=== PATIENT | female | born 1965 | race Caucasian/White ===

== ENCOUNTER → 2016-12-23 | Outpatient (CLI) | payer BC ==
[~2016-12-23] MED LIST: LISI-461 PO; PRED1SUS3
--- NOTE | 2016-12-23 12:08 | DIAGNOSTIC IMAGING REPORT ---
LEFT FOOT MIN 3 VIEWS ROUTINE CLINICAL HISTORY: Left foot pain COMPARISON: None. DISCUSSION: No acute fractures are visualized. There is a tiny plantar calcaneal spur. There are no erosive or destructive changes. IMPRESSION: No acute fractures. No evidence of erosive disease. Tiny plantar calcaneal spur. Electronically signed by: Ahmet Palafox M.D. 12/23/2016 12:06 PM Dictated Date/Time: 12/23/2016 12:05 PM
--- NOTE | 2016-12-23 12:13 | DIAGNOSTIC IMAGING REPORT ---
LEFT ANKLE MIN 3 VIEWS ROUTINE CLINICAL HISTORY: Acute left ankle pain following inversion injury. COMPARISON: None. FINDINGS: Alignment of the left ankle is anatomic. There is a tiny age indeterminate avulsion injury of the medial malleolus. No additional fractures are present. There is moderate lateral ankle soft tissue swelling. Talar dome is intact. IMPRESSION: 1. Tiny age indeterminate avulsion injury of the medial malleolus. 2. Moderate lateral ankle soft tissue swelling. Electronically signed by: Mathew Pelletier M.D. 12/23/2016 12:10 PM Dictated Date/Time: 12/23/2016 12:09 PM
== END | disposition home or self-care (01) ==
LOC: C.RAD1850 11:30
PROVIDERS: ATTEND Family Medicine
DX: M79.672 Pain in left foot (principal)